=== PATIENT | male | born 1990 | race Caucasian/White ===

== ENCOUNTER → 2018-06-28 16:51 | Outpatient (CLI) | payer OTHER, SELFPAY | PROVIDERS: Visit Provider Physician Assistant | DX: J02.9 Acute pharyngitis, unspecified (principal) ==

== ENCOUNTER → 2018-06-28 18:55 | Outpatient (REF) | payer OTHER, SELFPAY | LOC: LAB 18:55 | PROVIDERS: Visit Provider Physician Assistant | DX: J02.9 Acute pharyngitis, unspecified (principal) | CPT/HCPCS: 87070; 87077; 87147 ==